=== PATIENT | female | born 1965 | race Caucasian/White ===

== ENCOUNTER 2024-02-06 14:47 | Outpatient (AMB) | payer BC, SELFPAY ==
--- NOTE | 2024-02-06 15:07 | A.OFFVIS_ITS ---
Vital Signs 02/06/24 15:13 Height 5 ft 3 in Weight 201 lb 11.567 oz BMI 35.7 BP 126/64 Blood Pressure Location Rt brachial Position Sitting Pulse 100 Pulse Source Pulse Oximeter Pulse Oximetry (%) 96 Oxygen Delivery Method Room Air Intake Visit Reasons: Shortness of breath Rate Clerk Required: No Consulting Systems Engineer: Consulting Systems Engineer offered & declined Accompanied by: Self / Same As Patient Allergies No Known Allergies Allergy (Verified 02/06/24 15:07) Medication List - Last Reconciled 02/06/24 by Judi Monreal LPN buspirone 10 mg PO BID fluticasone furoate-vilanterol 100-25 mcg/dose (Breo Ellipta) 1 inh inhalation Q24H gabapentin 100 mg PO DAILY semaglutide (weight loss) (Wegovy) 0.25 mg subcut QWEEK HPI Comments Details: The patient is here for pulmonary evaluation. The patient is here for evaluation of dyspnea symptoms. The patient is a 58 year woman with a known history of tobacco dependency she quit about a year ago. Apparently about 8 years ago she was told she had emphysema and she became very concerned upset and she quit smoking. We then she gained around 50 lb and she became concerned abou t that so therefore she decided to go back to smoking after some time. More recently the patient was starting to develop worsening shortness of breath cough moderate severity. She became concerned also feeling like a rawness of her throat likely from the smoking. Therefore she talk to her dad and he recommend that she quit smoking therefore she did cold turkey. She actually use Nicorette gum as needed. However she was able to quit not look back. She has been doing well ever since. Peak further shortness of breath she did go to her primary care doctor she was given a prescription of Breo inhaler which is been helping. She did undergo pulmonary function studies which I did review. No evidence of obstruction to consider COPD although she does have significant air trapping hyperinflation likely too small airways disease and respiratory bronchiolitis which can occur with smoking. She also had a CT scan of the chest in 10/18/2023 which I personally reviewed with her. Seems that she has areas of emphysema but also has cystic areas of her lungs bilaterally right more than left. Therefore, the patient should continue getting CT scans because of her risk was smoking. She should have another CT scan low dose sometime in 10/17/2024. I will have her return in the spring and I will refer her to the lung cancer screening program at that time. Otherwise patient is doing well on the Breo we did go for a walking oximetry oxygen was fine although the heart rate did increase to about 115 beats per minute with minimal activity. She is going to start exercise and will going to retest her walking oximetry done and if her heart rate continues to be elevated additional testing will be warranted. [facility] Medical History (Updated 02/08/24 @ 21:46 by Kali Cummings MD) Asthma-COPD overlap syndrome Smoking history Emphysema lung Social History (Updated 02/06/24 @ 15:13 by Judi Monreal LPN) Patient Tobacco Use Status: Former Tobacco user Tobacco use type: Cigarette Cigarette Packs Per Day: 1 Years Smoked: 42 yrs Review of Systems Const Denies fever(s) Eyes Reports no additional complaints ENT Reports nasal congestion Card Denies chest pain and Reports dyspnea on exertion Resp Reports cough, Reports dyspnea on exertion and Denies wheezing GI Reports no additional complaints Musc Reports no additional complaints Skin/Breast Denies rash Endo Reports no additional complaints Jayden/Lymph Reports no additional complaints Aller/Immun Denies wheezing Physical Exam Vital Signs: Last Vital Signs Pulse 100 02/06/24 15:13 BP 126/64 02/06/24 15:13 Pulse Ox 96 02/06/24 15:13 Oxygen Delivery Method Room Air 02/06/24 15:13 BMI result Body Mass Index 35.7 Const General: comfortable HEENT Head: Yes normocephalic Neck Neck: Yes supple Chest Chest palpation & inspection: normal inspection of the chest Resp Effort & Inspection: normal respiratory effort Auscultation: clear to auscultation bilaterally Cardio Heart sounds: S1 normal heart sound present and S2 normal heart sound present GI Palpation (GI): Soft to palpation Skin General skin exam: no rashes or lesions noted Extrem General: Yes no clubbing, cyanosis or edema Assessment & Plan Assessment & Plan (1) Emphysema lung: Code(s): J43.9 - Emphysema, unspecified Category: Medical Qualifiers: Emphysema type: centrilobular Qualified Code(s): J43.2 - Centrilobular emphysema (2) Smoking history: Code(s): Z87.891 - Personal history of nicotine dependence Category: Medical (3) Asthma-COPD overlap syndrome: Code(s): J44.89 - Other specified chronic obstructive pulmonary disease Category: Medical Plan continue Breo ENOC as needed LDCT 09/2024 F/U 6 months Coding Level of Care Code New Pt Level 4 (98000) Diagnoses Centrilobular emphysema J43.2 Emphysema type: centrilobular Smoking history Z87.891 Asthma-COPD overlap syndrome J44.89
[2024-02-06 15:13] VITALS: BP 126/64; PULSE 100; O2SAT 96; BMI 35.7
== END 2024-02-06 15:47 | disposition home or self-care (01) ==
PROVIDERS: PCP Internal Medicine; Referring Provider Internal Medicine; Visit Provider Hospitalist
DX: J43.2 Centrilobular emphysema (principal); Z87.891 Personal history of nicotine dependence; J44.89 Other specified chronic obstructive pulmonary disease
CPT/HCPCS: 99204

== ENCOUNTER 2024-07-06 13:01 | Outpatient (AMB) | payer BC, SELFPAY ==
--- NOTE | 2024-07-06 13:04 | A.OFFVIS_ITS ---
Vital Signs 07/06/24 13:05 Height 5 ft 3 in Weight 200 lb 9.93 oz BMI 35.5 BP 116/70 Blood Pressure Location Rt brachial Position Sitting Pulse 95 Pulse Source Pulse Oximeter Pulse Oximetry (%) 96 Oxygen Delivery Method Room Air Intake Visit Reasons: Shortness of breath Allergies No Known Allergies Allergy (Verified 07/06/24 13:08) HPI Comments Details: The patient is a 58 year woman with a known history of tobacco dependency she quit about a year ago. Apparently about 8 years ago she was told she had emphysema and she became very concerned upset and she quit smoking. We then she gained around 50 lb and she became concerned about that so therefore she decided to go back to smoking after some time. More recently the patient was starting to develop worsening shortness of breath cough moderate severity. She became concerned also feeling like a rawness of her throat likely from the smoking. Therefore she talk to her dad and he recommend that she quit smoking therefore she did cold turkey. She actually use Nicorette gum as needed. However she was able to quit not look back. She has been doing well ever since. Peak further shortness of breath she did go to her primary care doctor she was given a prescription of Breo inhaler which is been helping. She did undergo pulmonary function studies which I did review. No evidence of obstruction to consider COPD although she does have significant air trapping hyperinflation likely too small airways disease and respiratory bronchiolitis which can occur with smoking. She also had a CT scan of the chest in 10/18/2023 which I personally reviewed with her. Seems that she has areas of emphysema but also has cystic areas of her lungs bilaterally right more than left. Therefore, the patient should continue getting CT scans because of her risk was smoking. She should have another CT scan low dose sometime in 10/17/2024. I will have her return in the springtime and I will refer her to the lung cancer screening program at that time. Otherwise patient is doing well on the Breo we did go for a walking oximetry oxygen was fine although the heart rate did increase to about 115 beats per minute with minimal activity. She is going to start exercise and will going to retest her walking oximetry done and if her heart rate continues to be elevated additional testing will be warranted. 07/06/2024 the patient is here for a pulmonary follow-up visit. The patient overall has been doing okay. She continues to have dyspnea on exertion. She had significant weight loss while being on a DLP 1 inhibitor but then she had to stop due to the fact that she was having significant adverse effects. She was getting significant panic attacks. Also significant dysmotility disorder. After she gained the weight back. She has been cluster about that. She understands that the weight is affecting her breathing. I did give him some information about medical weight loss management that she can look into. In the meantime she continues use her inhaler Breo. She does complain of dyspnea so therefore will go ahead and optimize her treatment to [facility] specially since she is going to start doing her outdoor cleaning and lawn mowing. Her next CT scan will be done in September 2024. She will call if any abnormalities noted or if she wants to review together. Will follow-up in a year's time. When she returns will do pulmonary function studies. If he has any issues prior to that she will call for an earlier assessment. [facility] Medical History (Updated 02/08/24 @ 21:46 by Kali Cummings MD) Asthma-COPD overlap syndrome Smoking history Emphysema lung Social History Patient Tobacco Use Status: Former Tobacco user Tobacco use type: Cigarette Cigarette Packs Per Day: 1 Years Smoked: 42 yrs Review of Systems Const Denies fever(s) Eyes Reports no additional complaints ENT Reports nasal congestion Card Denies chest pain and Reports dyspnea on exertion Resp Reports cough, Reports dyspnea on exertion and Denies wheezing GI Reports no additional complaints Musc Reports no additional complaints Skin/Breast Denies rash Endo Reports no additional complaints Jayden/Lymph Reports no additional complaints Aller/Immun Denies wheezing Physical Exam Vital Signs: Last Vital Signs Pulse 95 07/06/24 13:05 BP 116/70 07/06/24 13:05 Pulse Ox 96 07/06/24 13:05 Oxygen Delivery Method Room Air 07/06/24 13:05 BMI result Body Mass Index 35.5 Const General: comfortable HEENT Head: Yes normocephalic Neck Neck: Yes supple Chest Chest palpation & inspection: normal inspection of the chest Resp Effort & Inspection: normal respiratory effort Auscultation: clear to auscultation bilaterally Cardio Heart sounds: S1 normal heart sound present and S2 normal heart sound present GI Palpation (GI): Soft to palpation Skin General skin exam: no rashes or lesions noted Extrem General: Yes no clubbing, cyanosis or edema Assessment & Plan Assessment & Plan (1) Emphysema lung: Code(s): J43.9 - Emphysema, unspecified Category: Medical Qualifiers: Emphysema type: centrilobular Qualified Code(s): J43.2 - Centrilobular emphysema (2) Smoking history: Code(s): Z87.891 - Personal history of nicotine dependence Category: Social Hx (3) Asthma-COPD overlap syndrome: Code(s): J44.89 - Other specified chronic obstructive pulmonary disease Category: Medical Plan stop Breo start Trelegy ENOC as needed LDCT 09/2024 F/U 6 months Medications: New trssmsujfrg-eaihrmakb-mtmoorty 100-62.5-25 mcg (Trelegy Ellipta) 1 inh inhalation DAILY 60 ea 11RF 30 days J44.9 - Chronic obstructive pulmonary disease, unspecified Coding Level of Care Code Est Pt Level 4 (24798) Diagnoses Centrilobular emphysema J43.2 Emphysema type: centrilobular Smoking history Z87.891 Asthma-COPD overlap syndrome J44.89 Time Spent (min) 17
[2024-07-06 13:05] VITALS: BP 116/70; PULSE 95; O2SAT 96; BMI 35.5
== END 2024-07-06 13:44 | disposition home or self-care (01) ==
LOC: HO.HPS 13:02
PROVIDERS: PCP Internal Medicine; Visit Provider Hospitalist
DX: J43.2 Centrilobular emphysema (principal); Z87.891 Personal history of nicotine dependence; J44.89 Other specified chronic obstructive pulmonary disease
CPT/HCPCS: 99214

== ENCOUNTER → 2024-07-06 13:01 | Outpatient (BNVA) | payer BC, SELFPAY | PROVIDERS: PCP Internal Medicine; Visit Provider Hospitalist | DX: Z13.89 Encounter for screening for other disorder (principal) ==